=== PATIENT | female | born 1970 | race Caucasian/White ===

== ENCOUNTER → 2025-09-09 08:35 | Outpatient (REF) | payer OTHER, SELFPAY | LOC: RAD 08:35 | PROVIDERS: ATTENDING PHYSICIAN Physician Assistant Medical | DX: S16.1XXA Strain of muscle, fascia and tendon at neck level, initial encounter (principal) | CPT/HCPCS: 72052 ==

== ENCOUNTER 2025-10-04 06:28 | Outpatient (RCR) | payer OTHER, SELFPAY | END 2025-10-08 23:59 | disposition home or self-care (01) | LOC: RPT 06:28 | PROVIDERS: ATTENDING PHYSICIAN Physician Assistant Medical | DX: S16.1XXD Strain of muscle, fascia and tendon at neck level, subsequent encounter (principal); Z73.6 Limitation of activities due to disability; M25.512 Pain in left shoulder; M62.81 Muscle weakness (generalized); V49.60XD Unspecified car occupant injured in collision with unspecified motor vehicles in traffic accident, subsequent encounter | CPT/HCPCS: 97110; 97112; 97140; 97162 ==

== ENCOUNTER 2025-11-05 17:22 | Outpatient (RCR) | payer OTHER, SELFPAY | END 2025-11-05 23:59 | disposition home or self-care (01) | LOC: RPT 17:22 | PROVIDERS: ATTENDING PHYSICIAN Physician Assistant Medical | DX: S16.1XXD Strain of muscle, fascia and tendon at neck level, subsequent encounter (principal); Z73.6 Limitation of activities due to disability; M25.512 Pain in left shoulder; M62.81 Muscle weakness (generalized); V49.60XD Unspecified car occupant injured in collision with unspecified motor vehicles in traffic accident, subsequent encounter | CPT/HCPCS: 97010; 97110; 97112; 97140 ==

== ENCOUNTER → 2025-11-06 07:06 | Outpatient (REF) | payer OTHER, SELFPAY | LOC: MRI 07:06 | PROVIDERS: ATTENDING PHYSICIAN Physician Assistant Medical | DX: S16.1XXD Strain of muscle, fascia and tendon at neck level, subsequent encounter (principal) | CPT/HCPCS: 72141 ==